=== PATIENT | female | born 2000 | race Caucasian/White ===

== ENCOUNTER → 2020-03-25 15:37 | Outpatient (BNVA) | payer OTHER, SELFPAY | PROVIDERS: Family Provider Family Medicine; PCP Family Medicine; Visit Provider Family Medicine | DX: Z20.828 Contact with and (suspected) exposure to other viral communicable diseases (principal); Z11.59 Encounter for screening for other viral diseases | CPT/HCPCS: 87635 ==

== ENCOUNTER 2022-08-31 15:34 | Emergency (ER) | payer BC, MEDICAID, SELFPAY ==
[2022-08-31 15:39] VITALS: BP 111/76; PULSE 92; RESP 18; TEMP 36.7; O2SAT 93; BMI 30.4
[2022-08-31 16:48] LABS: Basophils % 0.6 %; Eosinophils # 0.5 10^3/uL (0.0-0.8); Eosinophils % 7.6 %; Hematocrit 40.2 % (37.0-47.0); Hemoglobin 13.4 g/dL (11.5-15.3); Lymphocytes # 2.1 10^3/uL (0.8-4.8); Lymphocytes % 33.8 %; Mean Corpuscular HGB Conc 33.3 g/dL (30.0-36.0); Mean Corpuscular Hemoglobin 30.9 pg (28.0-34.0); Mean Corpuscular Volume 92.6 fl (81-99); Mean Platelet Volume 10.8 fL (7.4-10.4); Monocytes # 0.3 10^3/uL (0.2-0.9); Monocytes % 5.1 %; Neutrophils # 3.31 10^3/uL (1.8-7.7); Neutrophils % 52.7 %; Nucleated Red Blood Cells % 0 %; Platelet Count 281 10^3/cmm (130-400); Red Blood Count 4.34 10^6/uL (4.1-5.3); Red Cell Distribution Width 11.9 % (12.1-15.1); White Blood Count 6.3 10^3/uL (4.0-10.0)
[2022-08-31 17:06] LABS: Alanine Aminotransferase 6 U/L (0-33); Albumin Level 4.3 g/dL (3.5-5.2); Alkaline Phosphatase 52 U/L (35-105); Anion Gap 13.8 (5-19); Aspartate Amino Transferase 14 U/L (0-32); Blood Urea Nitrogen 8 mg/dL (6-20); Calcium 9.6 mg/dL (8.5-10.5); Carbon Dioxide 25 mmol/L (22-29); Chloride 104 mmol/L (98-107); Globulin 2.7 g/dL (1.3-4.6); Glomerular Filtration Rate 104.6 mL/min (90-130); Glucose 94 mg/dL (65-115); Osmolality Calculated 286 mOsm/kg (285-295); Potassium 3.8 mmol/L (3.5-5.1); Sodium 139 mmol/L (136-145); Total Bilirubin 0.4 mg/dL (0.15-1.2)
[2022-08-31 18:02] LABS: HCG Quantitative 17.21 mIU/mL
--- NOTE | 2022-08-31 18:29 | ED_ITS ---
HPI - General: Chief complaint: Vaginal Bleeding Stated complaint: 8 weeks preg, bleeding Time Seen by Provider: 08/31/22 16:20 History of Present Illness: 21-year-old G3, P1 presents emergency room with vaginal bleeding and cramping within the past few days. Patient further reveals that she had positive test done at home but started bleeding on the 18th of this month. Patient revealed passing clots and described the lower abdomen as cramping sensation with severity of 4 out of 10. No nausea, vomiting, diarrhea, bloody stool or dark stool. No hematuria, flank pain, dysuria. Patient states that she has an appointment with OB tomorrow. Associated symptoms: Deny dyspareunia, dysuria or vaginal discharge Related Data: : 3 Review of Systems General: Reports: 10 or more systems reviewed and unremarkable except in HPI and below Const: Denies: fever(s), chills, body aches or change in appetite : Reports: vaginal bleeding; Denies: flank pain, difficulty voiding, dysuria, urinary frequency, urinary urgency, urinary hesitancy, dribbling, nocturia, oliguria, urinary incontinence, hematuria, genital lesions, genital pruritis, vaginal dryness, vaginal discharge, pelvic pain, prolapse symptoms, dyspareunia, difficulty conceiving or sexual dysfunction PFS ED PFSH: Social History (Updated 03/25/20 @ 15:20 by Evelyn Noel [facility]) Smoking and tobacco status: current every day smoker cigarettes Alcohol intake: never Substance/Drug Use: never Female Reproductive History: : 3 Physical Exam Const: COMMON NORMALS: no acute distress, average body habitus, patient oriented x3, no limitations, healthy appearing, alert and well nourished Neck/C-Spine: COMMON NORMALS: no JVD Chest: COMMONS NORMALS: normal inspection of the chest, normal palpation of entire chest wall, normal inspection of the breasts and normal palpation of the breasts Breast/axilla inspection: Yes normal inspection of the breasts BREAST/AXILLA PALPATION: Yes normal palpation of the breasts Resp: COMMON NORMALS: normal respiratory effort, No retractions, No use of accessory muscles, clear to auscultation bilaterally and percussion normal AU SCULTATION: clear to auscultation bilaterally PERCUSSION: percussion normal Cardio: COMMON NORMALS: no JVD, regular rate, regular rhythm, S1 normal heart sound present, S2 normal heart sound present, No gallops present (Cardio), No clicks present (Cardio), No murmurs present (Cardio), No rub (Cardio) and P eripheral pulses 2+ throughout RATE: regular rate RHYTHM: regular rhythm HEART SOUNDS: S1 normal heart sound present and S2 normal heart sound present PERIPHERAL PULSES: Peripheral pulses 2+ throughout GI: COMMON NORMALS: Normal to inspection, nondistended, normoactive bowel sounds present, Soft to palpation, non-tender, No hepatosplenomegaly present, no masses and no bruits PALPATION: Yes Soft to palpation and Yes No hepatosplenomegaly present Extremity: COMMON NORMALS: normal to inspection, full ROM, capillary refill normal, no joint enlargement, no clubbing, cyanosis or edema, no calf tenderness and no pedal edema Neuro: COMMON NORMALS: patient oriented x3 SENSORIUM/ORIENTATION: Yes alert Skin: COMMON NORMALS: no rashes or lesions noted, no wounds, turgor normal, no jaundice, no petechiae and no mottling GENERAL SKIN EXAM: no rashes or lesions noted and turgor normal Course Vital Signs: Vital signs: Vital Signs Temperature 98.1 F 08/31/22 15:39 Pulse Rate 92 08/31/22 15:39 Respiratory Rate 18 08/31/22 15:39 Blood Pressure 111/76 08/31/22 15:39 Pulse Oximetry 93 08/31/22 15:39 MDM - OB/Uterine Contractions Medical Decision Making Patient made comfortable emergency room. Patient had blood work including quantitative hCG. Because left-sided the patient. Discussed the need to follow-up with OB as scheduled for tomorrow. Lab Data 08/31/22 16:35 08/31/22 16:35 Laboratory Results WBC 6.3 10^3/uL (4.0-10.0) 08/31/22 16:35 RBC 4.34 10^6/uL (4.1-5.3) 08/31/22 16:35 Hgb 13.4 g/dL (11.5-15.3) 08/31/22 16:35 Hct 40.2 % (37.0-47.0) 08/31/22 16:35 MCV 92.6 fl (81-99) 08/31/22 16:35 MCH 30.9 pg (28.0-34.0) 08/31/22 16:35 MCHC 33.3 g/dL (30.0-36.0) 08/31/22 16:35 RDW 11.9 % (12.1-15.1) L 08/31/22 16:35 Plt Count 281 10^3/cmm (130-400) 08/31/22 16:35 MPV 10.8 fL (7.4-10.4) H 08/31/22 16:35 Neut % (Auto) 52.7 % 08/31/22 16:35 Lymph % (Auto) 33.8 % 08/31/22 16:35 [place] % (Auto) 5.1 % 08/31/22 16:35 Eos % (Auto) 7.6 % 08/31/22 16:35 Baso % (Auto) 0.6 % 08/31/22 16:35 Neut # (Auto) 3.31 10^3/uL (1.8-7.7) 08/31/22 16:35 Lymph # (Auto) 2.1 10^3/uL (0.8-4.8) 08/31/22 16:35 [place] # (Auto) 0.3 10^3/uL (0.2-0.9) 08/31/22 16:35 Eos # (Auto) 0.5 10^3/uL (0.0-0.8) 08/31/22 16:35 Baso # (Auto) 0.0 10^3/uL (0.0-0.1) 08/31/22 16:35 Nucleated RBC % (auto) 0 % 08/31/22 16:35 Nucleated RBCs # 0.0 /100WBC 08/31/22 16:35 Sodium 139 mmol/L (136-145) 08/31/22 16:35 Potassium 3.8 mmol/L (3.5-5.1) 08/31/22 16:35 Chloride 104 mmol/L (98-107) 08/31/22 16:35 Carbon Dioxide 25 mmol/L (22-29) 08/31/22 16:35 Anion Gap 13.8 (5-19) 08/31/22 16:35 BUN 8 mg/dL (6-20) 08/31/22 16:35 Creatinine 0.7 mg/dL (0.5-0.9) 08/31/22 16:35 GFR Calculation 104.6 mL/min (90-130) 08/31/22 16:35 Glucose 94 mg/dL (65-115) 08/31/22 16:35 Calculated Osmolality 286 mOsm/kg (285-295) 08/31/22 16:35 Calcium 9.6 mg/dL (8.5-10.5) 08/31/22 16:35 Total Bilirubin 0.4 mg/dL (0.15-1.2) 08/31/22 16:35 AST 14 U/L (0-32) 08/31/22 16:35 ALT 6 U/L (0-33) 08/31/22 16:35 Alkaline Phosphatase 52 U/L (35-105) 08/31/22 16:35 Total Protein 7.0 g/dL (6.6-8.7) 08/31/22 16:35 Albumin 4.3 g/dL (3.5-5.2) 08/31/22 16:35 Globulin 2.7 g/dL (1.3-4.6) 08/31/22 16:35 Ser , Semi-Qnt 17.21 mIU/mL 08/31/22 16:35 Blood Type B Positive 08/31/22 17:32 Rho(D) Type Positive 08/31/22 17:32 Discharge Plan Discharge Patient Disposition: Home Clinical Impression: Threatened Condition: Stable Prescriptions: No Action No Known Home Medications Discharge Orders: Discharge ED (Routine); Ordered 08/31/22 Ordered By: Gómez Carreno Discharge Diet: Advance as tolerated Patient Instructions: Opioid Safety, Pain Management Activity Restrictions/Additional Instructions: Bedrest and pelvic rest until you see your OB. EP appointment is scheduled for tomorrow for repeat PET ECG. 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
[2022-08-31 19:00] VITALS: BP 110/75; PULSE 78; RESP 18; O2SAT 94
[2022-08-31 19:01] VITALS: BP 110/75; PULSE 91; RESP 18; O2SAT 96
--- NOTE | 2022-09-06 11:15 | DCPLANNER ---
dice manager called patient due to no primary care physician - patient stated that she would like help in getting established with a primary care physician. dice manager called [facility], a follow up appointment was scheduled for Monday, October 03, 2022 at 9:[address] Jimenez. dice manager gave patient the appointment information.
== END 2022-08-31 19:06 | disposition home or self-care (01) ==
PROVIDERS: Emergency Provider Family Medicine
DX: O20.0 Threatened abortion (principal); O99.331 Smoking (tobacco) complicating pregnancy, first trimester; F17.210 Nicotine dependence, cigarettes, uncomplicated; Z3A.08 8 weeks gestation of pregnancy
CPT/HCPCS: 36415; 80053; 84702; 85025; 86900; 99283